=== PATIENT | male | born 1950 | race Caucasian/White ===

== ENCOUNTER 2019-05-14 13:58 | Day surgery (SDC) | payer MEDICARE, BC ==
[2019-05-09 13:07] LABS: BASOPHILS # (AUTO) 0.1 X10'3 (0-0.2); BASOPHILS % (AUTO) 0.6 % (0-1); EOSINOPHILS # (AUTO) 0.1 X10'3 (0-0.9); EOSINOPHILS % (AUTO) 1.5 % (0-6); HEMATOCRIT 42.5 % (42.0-52.0); HEMOGLOBIN 14.5 g/dl (14.0-17.9); LYMPHOCYTES # (AUTO) 1.7 X10'3 (1.1-4.8); LYMPHOCYTES % (AUTO) 21.9 % (21-51); MEAN CORPUSCULAR HEMOGLOBIN 32.2 PG (27.0-31.0); MEAN CORPUSCULAR HGB CONC 34.1 g/dL (33.0-36.5); MEAN CORPUSCULAR VOLUME 94.5 FL (78-98); MEAN PLATELET VOLUME 7.9 FL (7.4-10.4); MONOCYTES # (AUTO) 0.8 X10'3 (0-0.9); MONOCYTES % (AUTO) 10.5 % (2-12); NEUTROPHILS # (AUTO) 5.2 X10'3 (1.8-7.7); NEUTROPHILS % (AUTO) 65.5 % (42-75); PLATELET COUNT 220 X10'3 (140-440); RED CELL DISTRIBUTION WIDTH 13.4 % (11.5-14.5); WHITE BLOOD COUNT 7.9 X10'3 (4.5-11.0)
[2019-05-09 13:28] LABS: GLUCOSE 133 MG/DL (70-104); PARTIAL THROMBOPLASTIN TIME 24 SECONDS (22-32); POTASSIUM 3.6 MMOL/L (3.5-5.1); SODIUM 141 MMOL/L (135-145)
[2019-05-09 13:29] LABS: ALBUMIN 3.9 G/DL (3.4-5.0); ANION GAP 9 (8-16); BLOOD UREA NITROGEN 23 MG/DL (7-18); BUN/CREATININE RATIO 18.1 (5.4-32.0); CALCIUM 8.8 MG/DL (8.5-10.1); CHLORIDE 103 MMOL/L (99-107); CREATININE 1.27 MG/DL (0.60-1.10); TOTAL CARBON DIOXIDE 29.2 MMOL/L (24-32); eGFR 56 ML/MIN
[2019-05-14] VITALS (7 sets, daily range): BP systolic 93–130; BP diastolic 63–73
[~2019-05-14] VITALS: Ht 167.6 cm; Wt 102.7 kg
[~2019-05-14 13:58] MED LIST: AMLO-93 PO; CHLO25TA2 PO; DULO-31 PO; FLO0.4C PO; GABA-532 PO; GEMF600T89 PO; LEVO125T PO; LIOT5TAB10 PO; MELO-100 PO; ONDA4TAB12 PO; PANT40TA4 PO; ROSU20TA2 PO; ZOLP5TAB8 PO
[2019-05-14] MEDS ORDERED: diphenhydrAMINE 25mg capsule PO PRN (14:40)
[2019-05-14] MEDS ORDERED: LORazepam 0.5 MG tablet PO PRN (14:40)
[2019-05-14] MEDS ORDERED: normal saline 1,000 ML IV SCH (14:40)
[2019-05-14] MEDS ORDERED: MULT-1085 PO (15:11)
[2019-05-14] MEDS ORDERED: LORA2TAB96 PO (15:11)
[2019-05-14] MEDS ORDERED: METO25TA6 PO (15:11)
[2019-05-14] MEDS ORDERED: AMLO1TAB39 PO (15:11)
[2019-05-14] MEDS ORDERED: iohexol 350MG/ML 100ml bottle IV ONE (16:55)
[2019-05-14] MEDS ORDERED: LIDOcaine 1% (10mg/ml)w/preservative injection 20ml MDV ONE (16:55)
[2019-05-14] MEDS ORDERED: midazolam 2 mg/2 ml injection ONE (16:55)
[2019-05-14] MEDS ORDERED: fentaNYL/PF 50MCG/1 ML 2ML syringe ONE (16:55)
[2019-05-14] MEDS ORDERED: HYDROcodone/acetaminophen 10/325mg tab PO PRN (18:15)
[2019-05-14] MEDS ORDERED: HYDROcodone/acetaminophen 5mg/325mg tablet PO PRN (18:15)
[2019-05-14] MEDS ORDERED: ondansetron/PF 4mg/2ml inj IV PRN (18:15)
[2019-05-14] MEDS ORDERED: OXAZEpam 15mg capsule PO PRN (18:15)
[2019-05-14] MEDS ORDERED: proCHLORperazine 10 MG/2 ml inj IV PRN (18:15)
== END 2019-05-14 20:00 | disposition home or self-care (01) ==
LOC: SSTAY O 13:58
PROVIDERS: ATTEND Internal Medicine Interventional Cardiology
DX: R06.02 Shortness of breath (principal); G47.33 Obstructive sleep apnea (adult) (pediatric); I10 Essential (primary) hypertension; E78.5 Hyperlipidemia, unspecified; K21.9 Gastro-esophageal reflux disease without esophagitis; Z87.891 Personal history of nicotine dependence; Z79.899 Other long term (current) drug therapy
CPT/HCPCS: 36415; 80048; 85025; 85610; 85730; 93005; 93458; 99152; C1769; J1644; J2001; J2250; J3010; J7030; Q0163; Q9967; A4620; A6258

== ENCOUNTER 2021-07-28 11:15 | Outpatient (CLI) | payer OTHER ==
[~2021-07-28 11:15] MED LIST changes: +AMLO-382 PO; -AMLO-93 PO; +BUPR-317 PO; +BUSP10TA4 PO; -CHLO25TA2 PO; +FAMO40TA8 PO; +FLUT1BLS4 INH; +FURO-150 PO; -GABA-532 PO; -LEVO125T PO; +LEVO88TA2 PO; -LIOT5TAB10 PO; +LOP25T PO; -MELO-100 PO; +MULT-1085 PO; -ONDA4TAB12 PO; -PANT40TA4 PO; +PANT40TA54 PO; -ZOLP5TAB8 PO
== END 2021-07-28 23:59 | disposition home or self-care (01) ==
LOC: LAB 11:15
DX: E03.9 Hypothyroidism, unspecified (principal)
CPT/HCPCS: 36415; 84439; 84443; 84481